=== PATIENT | male | born 1970 | race Caucasian/White ===

== ENCOUNTER 2017-06-17 10:39 | Emergency (ER) | payer SELFPAY | END 2017-06-17 13:16 | disposition left against medical advice (07) | LOC: NAV ERS 10:39 | DX: R05 Cough (principal); R19.7 Diarrhea, unspecified; E11.9 Type 2 diabetes mellitus without complications; I10 Essential (primary) hypertension; Z79.4 Long term (current) use of insulin; Z87.891 Personal history of nicotine dependence | CPT/HCPCS: 36416; 99283 ==

== ENCOUNTER 2017-07-17 06:33 | Emergency (ER) | payer SELFPAY ==
[2017-07-17] MEDS ORDERED: Adacel (T-DAP) 0.5 ML VIAL ONE (07:11)
[2017-07-17] MEDS ORDERED: Lidocaine 1% 20 ML MDV ONE (07:11)
[2017-07-17] MEDS ORDERED: Ibuprofen 800 MG TAB ONE (07:32)
--- NOTE | 2017-07-17 07:55 | RAD ---
RIGHT HAND FIFTH DIGIT THREE VIEWS: HISTORY: Injury and pain. COMPARISON: None. FINDINGS: There is subluxation\disloction of the fifth digit at the level of the proximal interphalangeal joint space. No fracture. Post reduction film is recommended. IMPRESSION: Subluxation\dislocation. POS: [facility]
--- NOTE | 2017-07-17 07:59 | RAD ---
TWO VIEWS RIGHT FINGER: HISTORY: Status post reduction. COMPARISON: 07/17/2017 at 6:42 a.m. FINDINGS: Redemonstration of persistent subluxation/dislocation of the right fifth digit. The reduction has be en unsuccessful. IMPRESSION: Unsuccessful reduction. POS: [facility]
--- NOTE | 2017-07-17 08:05 | RAD ---
TWO VIEWS RIGHT FINGER: INDICATIONS: Post reduction. FINDINGS: Restored alignment of the PIP joint. Otherwise, no significant interval change. IMPRESSION: Restored alignment at the fifth digit proximal interphalangeal joint. POS: [facility]
== END 2017-07-17 08:02 | disposition home or self-care (01) ==
LOC: NAV ERS 06:33
DX: S63.286A Dislocation of proximal interphalangeal joint of right little finger, initial encounter (principal); E11.9 Type 2 diabetes mellitus without complications; I10 Essential (primary) hypertension; J44.9 Chronic obstructive pulmonary disease, unspecified; Z79.4 Long term (current) use of insulin; F31.9 Bipolar disorder, unspecified; Z79.891 Long term (current) use of opiate analgesic; F17.210 Nicotine dependence, cigarettes, uncomplicated; W22.8XXA Striking against or struck by other objects, initial encounter
CPT/HCPCS: 26770; 90471; 90715; J2001

== ENCOUNTER 2017-10-25 11:54 | Emergency (ER) | payer SELFPAY ==
[2017-10-25] MEDS ORDERED: Lidocaine 1% 20 ML MDV ONE (12:13)
== END 2017-10-25 12:54 | disposition home or self-care (01) ==
LOC: NAV ERS 11:54
DX: L03.221 Cellulitis of neck (principal); E11.9 Type 2 diabetes mellitus without complications; F31.9 Bipolar disorder, unspecified; F17.210 Nicotine dependence, cigarettes, uncomplicated; F17.220 Nicotine dependence, chewing tobacco, uncomplicated; I10 Essential (primary) hypertension; J44.9 Chronic obstructive pulmonary disease, unspecified; Z79.4 Long term (current) use of insulin; Z79.899 Other long term (current) drug therapy
CPT/HCPCS: 10060; 87070; 87077; 87186; 87205; J2001

== ENCOUNTER 2017-10-28 18:26 | Emergency (ER) | payer SELFPAY | END 2017-10-28 19:15 | disposition home or self-care (01) | LOC: NAV ERS 18:26 | DX: Z48.817 Encounter for surgical aftercare following surgery on the skin and subcutaneous tissue (principal); Z48.01 Encounter for change or removal of surgical wound dressing; E11.9 Type 2 diabetes mellitus without complications; I10 Essential (primary) hypertension; J44.9 Chronic obstructive pulmonary disease, unspecified; F31.9 Bipolar disorder, unspecified; F17.220 Nicotine dependence, chewing tobacco, uncomplicated; Z79.4 Long term (current) use of insulin; Z79.899 Other long term (current) drug therapy | CPT/HCPCS: 99282 ==